=== PATIENT | female | born 1960 | race Caucasian/White ===

== ENCOUNTER 2017-09-08 08:38 | Inpatient (IN) | payer BC, OTHER ==
[~2017-09-08] VITALS: Ht 157.5 cm; Wt 117.1 kg
[2017-09-08] MEDS ORDERED: FLUT1AER INH (09:29)
[2017-09-08] MEDS ORDERED: ALBU18HF INH (09:29)
[2017-09-08] MEDS ORDERED: AMOX1TAB12 PO (09:29)
[2017-09-08] MEDS ORDERED: LOSA50TA6 PO (09:29)
[2017-09-08] MEDS ORDERED: PRED20TA PO (09:29)
[2017-09-08] MEDS ORDERED: AZIT500T PO (09:29)
[2017-09-08] MEDS ORDERED: ALLO300T PO (09:29)
[2017-09-08] MEDS ORDERED: methylPREDNISolone SOD SUCC 125 MG/2 ML IVP ONE (09:30)
[2017-09-08] MEDS ORDERED: ALBUTEROL/IPRATROPIUM 2.5MG/0.5MG, 3 ML NPPB SCH (09:30)
[2017-09-08] MEDS ORDERED: SODIUM CHLORIDE FLUSH 10ML SYR IVF ONE (09:30)
[2017-09-08] MEDS ORDERED: methylPREDNISolone SOD SUCC 125 MG/2 ML ONE (09:34)
[2017-09-08] MEDS ORDERED: ALBUTEROL/IPRATROPIUM 2.5MG/0.5MG, 3 ML ONE (09:57)
[2017-09-08 10:03] LABS: MEAN CORPUSCULAR VOLUME 87.8 fL (80-100); MEAN PLATELET VOLUME 9.1 fL (7.4-10.4); PLATELET COUNT 265 x10^3/uL (130-400); RED BLOOD COUNT 4.86 x10^6/uL (3.82-5.3)
[2017-09-08 10:16] LABS: ALANINE AMINOTRANSFERASE 29 U/L (12-78); ALBUMIN 3.4 g/dL (3.4-5.0); ANION GAP 6 mmol/L (5-15); CALCIUM 8.6 mg/dL (8.5-10.1); CHLORIDE 112 mmol/L (98-107); CREATININE 0.62 mg/dL (0.55-1.02)
[2017-09-08 10:20] LABS: ALKALINE PHOSPHATASE 111 U/L (45-117); BILIRUBIN,TOTAL 0.5 mg/dL (0.2-1.0); TROPONIN I < 0.015 ng/mL (0.000-0.045)
[2017-09-08 10:25] LABS: INTERNATIONAL NORMALIZED RATIO 0.96 (0.93-1.1); PROTHROMBIN TIME 9.9 Seconds (9.6-11.5)
[2017-09-08 10:43] LABS: BASOPHILS # (AUTO) 0.02 x10^3/uL (0-0.1); BASOPHILS % (AUTO) 0 % (0-1); EOSINOPHILS % (AUTO) 0 % (1-7); LYMPHOCYTES # (AUTO) 0.88 x10^3/uL (1-3.4); LYMPHOCYTES % (AUTO) 12 % (22-44); MD SCAN; MONOCYTES # (AUTO) 0.26 x10^3/uL (0.2-0.8); MONOCYTES % (AUTO) 4 % (2-9); NEUTROPHILS # (AUTO) 6.39 x10^3/uL (1.8-6.8); NEUTROPHILS % (AUTO) 85 % (42-75)
[2017-09-08] MEDS ORDERED: HYDROcodone/APAP 5/325 TABLET PO PRN (12:30)
[2017-09-08] MEDS ORDERED: ONDANSETRON ODT 4 MG PO PRN (12:30)
[2017-09-08] MEDS ORDERED: SODIUM CHLORIDE FLUSH 10ML SYR IVF PRN (12:30)
[2017-09-08] MEDS ORDERED: LABETALOL 5MG/ML, 20ML IVPush PRN (12:30)
[2017-09-08] MEDS ORDERED: ONDANSETRON 2MG/ML, 2ML IVPush PRN (12:30)
[2017-09-08] MEDS ORDERED: ALBUTEROL SULFATE 2.5 MG/3 ML ONE (15:04)
[2017-09-08 15:09] VITALS: BP 138/74
[2017-09-08 15:18] VITALS: BP 138/74
[2017-09-08] MEDS: methylPREDNISolone SOD SUCC 125 MG/2 ML IVPush SCH (16:17)
[2017-09-08] MEDS: CEFTRIAXONE PMX 2GM/50ML 50 ML IV SCH (16:18)
[2017-09-08] MEDS: GUAIFENESIN 200 MG TABLET PO SCH ×2 (16:18→20:15)
[2017-09-08 18:40] VITALS: BP 161/74
[2017-09-08] MEDS: LOSARTAN 50MG TABLET PO SCH (20:14)
[2017-09-08] MEDS: DOXYCYCLINE 100MG TABLET PO SCH (20:15)
[2017-09-09] MEDS: methylPREDNISolone SOD SUCC 125 MG/2 ML IVPush SCH ×4 (00:34→18:21)
[2017-09-09 02:49] VITALS: BP 113/55
[2017-09-09 06:04] LABS: CHLORIDE 109 mmol/L (98-107)
[2017-09-09 06:07] LABS: BASOPHILS # (AUTO) 0.03 x10^3/uL (0-0.1); BASOPHILS % (AUTO) 0 % (0-1); EOSINOPHILS % (AUTO) 0 % (1-7); LYMPHOCYTES # (AUTO) 1.13 x10^3/uL (1-3.4); LYMPHOCYTES % (AUTO) 10 % (22-44); MD NO; MEAN CORPUSCULAR HEMOGLOBIN 28.8 pg (27.0-34.8); MEAN CORPUSCULAR HGB CONC 32.6 g/dL (32.4-35.8); MEAN CORPUSCULAR VOLUME 88.3 fL (80-100); MEAN PLATELET VOLUME 9.9 fL (7.4-10.4); MONOCYTES # (AUTO) 0.34 x10^3/uL (0.2-0.8); MONOCYTES % (AUTO) 3 % (2-9); NEUTROPHILS # (AUTO) 10.03 x10^3/uL (1.8-6.8); NEUTROPHILS % (AUTO) 87 % (42-75); PLATELET COUNT 239 x10^3/uL (130-400); RED CELL DISTRIBUTION WIDTH 16.3 % (9.6-15.2)
[2017-09-09] MEDS: GUAIFENESIN 200 MG TABLET PO SCH ×4 (06:20→21:05)
[2017-09-09 06:22] LABS: ALANINE AMINOTRANSFERASE 28 U/L (12-78); ALBUMIN 3.1 g/dL (3.4-5.0); ALKALINE PHOSPHATASE 92 U/L (45-117); ANION GAP 9 mmol/L (5-15); BILIRUBIN,TOTAL 0.4 mg/dL (0.2-1.0); CALCIUM 8.7 mg/dL (8.5-10.1); CREATININE 0.52 mg/dL (0.55-1.02); TOTAL PROTEIN 6.6 g/dL (6.4-8.2)
[2017-09-09 07:34] VITALS: BP 119/81
[2017-09-09] MEDS: DOXYCYCLINE 100MG TABLET PO SCH ×2 (08:39→21:05)
[2017-09-09] MEDS: ALLOPURINOL 300 MG TABLET PO SCH (08:39)
[2017-09-09] MEDS: ALBUTEROL SULFATE 2.5 MG/3 ML NPPB PRN (08:55)
[2017-09-09] MEDS: FLUTICASONE/VILANTEROL 100-25MCG/INH INH SCH (11:11)
[2017-09-09 13:29] VITALS: BP 143/74
[2017-09-09] MEDS: CEFTRIAXONE PMX 2GM/50ML 50 ML IV SCH (15:00)
[2017-09-09] MEDS: ENOXAPARIN 40 MG/0.4 ML SQ SCH (18:21)
[2017-09-09 18:28] VITALS: BP 149/78
[2017-09-09] MEDS: LOSARTAN 50MG TABLET PO SCH (21:05)
[2017-09-10] MEDS: methylPREDNISolone SOD SUCC 125 MG/2 ML IVPush SCH ×4 (01:21→19:40)
[2017-09-10 01:43] VITALS: BP 135/65
[2017-09-10] MEDS: GUAIFENESIN 200 MG TABLET PO SCH ×4 (05:28→20:39)
[2017-09-10 06:40] VITALS: BP 149/75
[2017-09-10] MEDS ORDERED: OMEPRAZOLE 20 MG CAPSULE.DR ONE (08:06)
[2017-09-10] MEDS: FLUTICASONE/VILANTEROL 100-25MCG/INH INH SCH (08:10)
[2017-09-10] MEDS: OMEPRAZOLE 20 MG CAPSULE.DR PO SCH (08:10)
[2017-09-10] MEDS: DOXYCYCLINE 100MG TABLET PO SCH ×2 (08:10→20:39)
[2017-09-10] MEDS: ALLOPURINOL 300 MG TABLET PO SCH (08:10)
[2017-09-10] MEDS: ALBUTEROL SULFATE 2.5 MG/3 ML NPPB PRN (08:23)
[2017-09-10 13:35] VITALS: BP 147/78
[2017-09-10] MEDS: CEFTRIAXONE PMX 2GM/50ML 50 ML IV SCH (14:16)
[2017-09-10] MEDS: ENOXAPARIN 40 MG/0.4 ML SQ SCH (17:41)
[2017-09-10 20:00] VITALS: BP 130/75
[2017-09-10] MEDS: LOSARTAN 50MG TABLET PO SCH (20:39)
[2017-09-11] MEDS: methylPREDNISolone SOD SUCC 125 MG/2 ML IVPush SCH (01:51)
[2017-09-11 01:55] VITALS: BP 132/65
[2017-09-11 05:07] LABS: BASOPHILS # (AUTO) 0.01 x10^3/uL (0-0.1); BASOPHILS % (AUTO) 0 % (0-1); EOSINOPHILS % (AUTO) 0 % (1-7); LYMPHOCYTES # (AUTO) 1.13 x10^3/uL (1-3.4); LYMPHOCYTES % (AUTO) 10 % (22-44); MD NO; MEAN CORPUSCULAR HEMOGLOBIN 28.7 pg (27.0-34.8); MEAN CORPUSCULAR HGB CONC 32.5 g/dL (32.4-35.8); MEAN CORPUSCULAR VOLUME 88.3 fL (80-100); MEAN PLATELET VOLUME 9.7 fL (7.4-10.4); MONOCYTES % (AUTO) 3 % (2-9); NEUTROPHILS % (AUTO) 87 % (42-75); PLATELET COUNT 284 x10^3/uL (130-400); RED CELL DISTRIBUTION WIDTH 15.8 % (9.6-15.2)
[2017-09-11] MEDS: GUAIFENESIN 200 MG TABLET PO SCH ×4 (05:10→22:00)
[2017-09-11 05:18] LABS: ALBUMIN 2.9 g/dL (3.4-5.0); ANION GAP 6 mmol/L (5-15); CHLORIDE 109 mmol/L (98-107)
[2017-09-11 07:12] VITALS: BP 155/72
[2017-09-11] MEDS: FLUTICASONE/VILANTEROL 100-25MCG/INH INH SCH (09:46)
[2017-09-11] MEDS: OMEPRAZOLE 20 MG CAPSULE.DR PO SCH (09:47)
[2017-09-11] MEDS: ALLOPURINOL 300 MG TABLET PO SCH (09:47)
[2017-09-11] MEDS: DOXYCYCLINE 100MG TABLET PO SCH ×2 (09:47→22:00)
[2017-09-11] MEDS: CEFTRIAXONE PMX 2GM/50ML 50 ML IV SCH (14:35)
[2017-09-11 14:38] VITALS: BP 144/71
[2017-09-11] MEDS: ENOXAPARIN 40 MG/0.4 ML SQ SCH (16:28)
[2017-09-11 19:56] VITALS: BP 136/80
[2017-09-11] MEDS: LOSARTAN 50MG TABLET PO SCH (22:00)
[2017-09-12 02:29] VITALS: BP 147/67
[2017-09-12] MEDS: GUAIFENESIN 200 MG TABLET PO SCH ×3 (06:07→16:37)
[2017-09-12 06:53] VITALS: BP 163/87
[2017-09-12 07:40] LABS: BASOPHILS # (AUTO) 0.05 x10^3/uL (0-0.1); BASOPHILS % (AUTO) 0 % (0-1); EOSINOPHILS # (AUTO) 0.02 x10^3/uL (0-0.4); EOSINOPHILS % (AUTO) 0 % (1-7); LYMPHOCYTES # (AUTO) 3.12 x10^3/uL (1-3.4); LYMPHOCYTES % (AUTO) 27 % (22-44); MD NO; MEAN CORPUSCULAR HEMOGLOBIN 29.2 pg (27.0-34.8); MEAN CORPUSCULAR HGB CONC 33.2 g/dL (32.4-35.8); MEAN PLATELET VOLUME 9.1 fL (7.4-10.4); MONOCYTES # (AUTO) 0.75 x10^3/uL (0.2-0.8); MONOCYTES % (AUTO) 7 % (2-9); NEUTROPHILS # (AUTO) 7.43 x10^3/uL (1.8-6.8); NEUTROPHILS % (AUTO) 65 % (42-75); PLATELET COUNT 291 x10^3/uL (130-400); RED BLOOD COUNT 4.78 x10^6/uL (3.82-5.3); RED CELL DISTRIBUTION WIDTH 15.7 % (9.6-15.2)
[2017-09-12 07:51] LABS: ANION GAP 5 mmol/L (5-15); CALCIUM 8.2 mg/dL (8.5-10.1); CHLORIDE 110 mmol/L (98-107); CREATININE 0.65 mg/dL (0.55-1.02)
[2017-09-12] MEDS: ALBUTEROL SULFATE 2.5 MG/3 ML NPPB PRN (08:30)
[2017-09-12] MEDS: DOXYCYCLINE 100MG TABLET PO SCH (08:51)
[2017-09-12] MEDS: OMEPRAZOLE 20 MG CAPSULE.DR PO SCH (08:51)
[2017-09-12] MEDS: ALLOPURINOL 300 MG TABLET PO SCH (08:51)
[2017-09-12] MEDS: FLUTICASONE/VILANTEROL 100-25MCG/INH INH SCH (08:51)
[2017-09-12 13:17] VITALS: BP 147/78
[2017-09-12] MEDS: CEFTRIAXONE PMX 2GM/50ML 50 ML IV SCH (14:54)
[2017-09-12] MEDS ORDERED: DOXY100T PO (15:57)
[2017-09-12] MEDS ORDERED: OMEP-110 PO (15:57)
[2017-09-12] MEDS ORDERED: PRED10TA PO (15:57)
[2017-09-12] MEDS ORDERED: CEFD300C37 PO (15:58)
== END 2017-09-12 18:30 | disposition home or self-care (01) | DRG 193 ==
LOC: ED 11:45 → EDIP 12:13 → 4WST 14:19
PROVIDERS: ADMIT Hospitalist; ATTEND Hospitalist
DX: J15.9 Unspecified bacterial pneumonia (principal); J96.01 Acute respiratory failure with hypoxia; E66.01 Morbid (severe) obesity due to excess calories; E44.1 Mild protein-calorie malnutrition; J45.901 Unspecified asthma with (acute) exacerbation; Z68.42 Body mass index [BMI] 45.0-49.9, adult; I10 Essential (primary) hypertension; K21.9 Gastro-esophageal reflux disease without esophagitis; M10.9 Gout, unspecified; Z80.0 Family history of malignant neoplasm of digestive organs; Z80.3 Family history of malignant neoplasm of breast; Z82.49 Family history of ischemic heart disease and other diseases of the circulatory system; Z83.3 Family history of diabetes mellitus; Z87.891 Personal history of nicotine dependence; Z90.710 Acquired absence of both cervix and uterus; R07.89 Other chest pain
CPT/HCPCS: 36415; 71046; 80048; 80053; 82040; 83605; 83735; 83880; 84100; 84439; 84484; 85025; 85610; 85730; 87040; 87070; 87205; 93005; 93306; 94640; 96374; J0696; J7613; J7620; J2930; J7512

== ENCOUNTER → 2018-05-17 | Outpatient (CLI) | payer BC ==
[~2018-05-17] MED LIST: ALBU18HF INH; ALLO300T PO; AMOX1TAB12 PO; AZIT500T PO; CEFD300C37 PO; DOXY100T PO; FLUT1AER INH; LOSA50TA7 PO; OMEP-110 PO; PRED10TA PO; PRED20TA PO
== END | disposition home or self-care (01) ==
LOC: RAD 15:18
PROVIDERS: ATTEND Internal Medicine
DX: R06.02 Shortness of breath (principal)
CPT/HCPCS: 71250